=== PATIENT | male | born 1970 | race Caucasian/White ===

== ENCOUNTER 2023-03-05 16:28 | Emergency (ER) | payer OTHER, SELFPAY ==
[2023-03-05] VITALS (39 sets, daily range): BP systolic 127–144; BP diastolic 71–97; PULSE 62–84; RESP 18; TEMP 36.5; O2SAT 94–100; BMI 32.1
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
[2023-03-05 16:58] LABS: Basophils Absolute Auto 0.03 K/uL (0.00-0.30); Basophils Percent Auto 0.4 % (0.0-3.0); Eosinophils Absolute Auto 0.06 K/uL (0.00-0.50); Eosinophils Percent Auto 0.9 % (0.0-7.0); Hematocrit 47.2 % (37.0-53.0); Hemoglobin* 16.3 gm/dL (13.5-17.5); Immature Granulocytes Abs Auto 0.01 K/uL (0.00-0.30); Immature Granulocytes Pct Auto 0.1 %; Lymphocytes Absolute Auto 2.66 K/uL (0.90-2.90); Lymphocytes Percent Auto 38.9 % (20-44); Mean Corpuscular HGB Conc 35 gm/dL (32-36); Mean Corpuscular Hemoglobin 29 pg (26-34); Mean Corpuscular Volume 85 fL (80-100); Monocytes Percent Auto 9.2 % (0.0-11.0); Neutrophils Absolute Auto 3.45 K/uL (1.7-7.0); Neutrophils Percent Auto 50.5 % (42.0-72.0); Platelet Count* 267 K/uL (140-440); RDW Coefficient of Variation % 13.4 % (11.5-15.5); Red Blood Count 5.57 m/uL (4.30-5.90); White Blood Count* 6.84 K/uL (4.50-11.00)
[2023-03-05 17:00] LABS: Slide Review Reflex No
[2023-03-05 17:05] LABS: Appearance Urine Clear (Clear); Bilirubin Urine Negative (Negative); Blood Urine Trace-lysed (Negative); Color Urine Yellow (Yellow); Glucose Urine Negative (Negative); Ketones Urine Negative (Negative); Leukocyte Esterase Urine Negative (Negative); Nitrite Urine Negative (Negative); Protein Urine Trace (Negative); Urobilinogen Urine 0.2 (0.2-1.0); pH Urine 5.5 (5.0-8.5)
[2023-03-05 17:06] LABS: Albumin* 4.9 g/dL (3.3-5.0); Chloride* 107 mmol/L (96-114)
[2023-03-05 17:07] LABS: Potassium* 4.3 mmol/L (3.6-5.1); Sodium* 142 mmol/L (135-149)
[2023-03-05 17:09] LABS: Alanine Aminotransferase* 31 U/L (4-50); Alkaline Phosphatase* 50 U/L (40-150); Aspartate Amino Transferase* 32 U/L (12-35); Bilirubin Direct* 0.2 mg/dL (0.0-0.5); Bilirubin Total* 0.3 mg/dL (0.1-1.5); Blood Urea Nitrogen* 13 mg/dL (7-30); Calcium* 8.7 mg/dL (8.4-10.6); Carbon Dioxide* 23 mmol/L (20-32); Creatinine* 0.8 mg/dL (0.5-1.5); Est. Creatinine Clearance* 115.04; Estimated Glomerular Filt Rate 106 ml/min; Glucose* 104 mg/dL (60-115); Total Protein* 8.4 g/dL (6.0-8.3)
[2023-03-05 17:10] LABS: Ethanol* 0.29 % (0.01-0.03)
[2023-03-05 17:15] LABS: RBC Urine 0-2 (0-2); Squamous Epithelial Cell Urine Few (None-Few); WBC Urine 0-2 (0-5)
[2023-03-05] MEDS: 0.9 % SODIUM CHLORIDE 1000 ml 1,000 ML IV (17:15)
--- NOTE | 2023-03-05 18:00 | ED.NURSE ---
Pt voids ~400mLs into urinal.
--- NOTE | 2023-03-05 19:38 | ED.NURSE ---
Pt's wounds cleansed with wound beer coil cleaner and sterile gauze. Wounds then rinsed using NS. Areas then dried thoroughly with sterile gauze. Dr. Mahan evaluated wounds after cleansing.
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
== END 2023-03-05 19:25 | disposition home or self-care (01) ==
PROVIDERS: Emergency Provider Family Medicine
DX: S50.12XA Contusion of left forearm, initial encounter (principal); F10.229 Alcohol dependence with intoxication, unspecified; S09.90XA Unspecified injury of head, initial encounter; R91.1 Solitary pulmonary nodule; K76.89 Other specified diseases of liver; V86.55XA Driver of 3- or 4- wheeled all-terrain vehicle (ATV) injured in nontraffic accident, initial encounter
CPT/HCPCS: 36415; 70450; 71260; 72125; 73090; 74177; 80048; 80076; 81001; 82077; 85025; 93005; 96360; 99285; 99291; J7030; Q9967

== ENCOUNTER 2023-08-09 15:13 | Outpatient (CLI) | payer OTHER, SELFPAY ==
--- NOTE | 2023-08-09 15:30 | MR_ITS ---
[address] [address] Phone:?[phone] Fax:?[phone] Referring Physician Information: Chavo Marin M.D. [id number] [facility] [address] Phone:?[phone] Fax:?[phone] Patient:?Josue Dai D.O.B:?1970 Sex:?Male Phone:?[phone] [facility] MRN:?[id number] Exam Date:?08/09/2023 EXAM: MRI of the LEFT SHOULDER, without contrast CLINICAL INFORMATION: Male, 52 years old, with left shoulder pain. INDICATION: Evaluate for biceps injury. PRIOR SURGERY: History of shoulder surgery approximately 10 years ago. PLAIN FILMS: Shoulder radiographs dated 08/01/2023 and multiple additional priors are available. COMPARISONS: Left shoulder MRI dated 03/06/2012. TECHNICAL INFORMATION: Using a 1.5T MR scanner and a localizing surface coil: coronal obliques: PD, T2, STIR sagittal obliques: PD, T2 axials: PD, T2 SEDATION: None CONTRAST: None FINDINGS: Bones: Proximal humerus: Surgical anchors in the greater tuberosity reflects rotator cuff repair, described below. No fracture or marrow edema/pathology. No humeral Hill-Sachs or reverse Hill-Sachs lesion/impaction or contusion. Glenoid: No fracture or marrow edema/pathology. No osseous Bankart lesion. Rotator cuff and muscles/tendons: Supraspinatus: Status post repair. Mild supraspinatus tendinopathy and irregularity, without residual or recurrent tendon tear. Infraspinatus: Mild infraspinatus tendinopathy, without tendon tear or muscle atrophy. Teres minor: No tendinopathy, tear or atrophy. Subscapularis: Moderate-marked tendinopathy of the superior distal subscapularis, with partial-thickness interstitial tearing over an area measuring 1.5 x 1.9 cm and involving approximately 50% of the tendon thickness (sagittal T2 series 8 image 13 and axial PD series 3 image 18). Deltoid: No strain or atrophy. Coracoacromial arch: Acromion morphology: Status post anterior acromioplasty for subacromial decompression, good result. No os acromiale. Acromiohumeral space: The acromiohumeral space is decompressed. Coracohumeral space: The coracohumeral space is within normal limits. Acromioclavicular joint: Joint: Status post AC joint resection for subacromial decompression, good result. Ligaments: Coracoclavicular ligaments are intact. Bursae: Subacromial-subdeltoid: No convincing subacromial bursal thickening/bursitis. Subcoracoid: No convincing subcoracoid bursal thickening/bursitis. Biceps tendon: The long head of the biceps tendon is medially displaced at the lesser tuberosity. Moderate tendinopathy and ill-defined low-grade partial tearing of the intra-articular biceps long head tendon (sagittal PD series 7 images 9-16). Glenohumeral joint: Effusion/cyst: Small glenohumeral joint effusion. Articular cartilage: Humeral head: Mild signal heterogeneity, surface irregularity, and thinning of the articular cartilage without full-thickness chondral loss or reactive osseous changes. Glenoid: No osteochondral abnormalities. Loose bodies: No discrete intra-articular body within the joint. Labrum:?Intrasubstance degeneration fraying is present throughout the superior and anterior segments of the labrum, without more well-defined labral tear. No paralabral cyst. Inferior glenohumeral ligament/axillary pouch:?Mild-moderate thickening of inferior capsuloligamentous structures (coronal PD series 5 images 12-18). Additionally, there is soft tissue thickening throughout the rotator interval (sagittal T2 series 8 images 8-14). IMPRESSION: 1. Findings in keeping with a biceps dino injury: -Moderate-marked subtalar tendinopathy with a 1.5 x 1.9 cm area of intermediate grade partial-thickness interstitial tearing at the superior leading edge of the tendon. -Medial displacement of the biceps long head tendon at the lesser tuberosity. -Moderate tendinopathy and ill-defined low-grade partial tearing of the intra- articular biceps long head tendon. -These findings were not present on the prior study dated 03/06/2012. 2. Status post supraspinatus tendon repair. Mild supraspinatus & infraspinatus tendinopathy, without residual or recurrent tendon tear. 3. Status post anterior acromioplasty and AC joint resection for subacromial decompression, good result. No subacromial-subdeltoid bursitis. 4. Intrasubstance degeneration and fraying of the superior and anterior labrum, which is of doubtful clinical significance. 5. Findings in keeping with any clinical symptoms of adhesive capsulitis. 6. No full-thickness chondral defect or evidence of glenohumeral joint osteoarthritis. BC Electronically signed on 08/10/2023 7:11:00 AM by Adolfo Amaro M.D.
== END 2023-08-09 15:14 | disposition home or self-care (01) ==
LOC: MRI 15:13
PROVIDERS: PCP Surgery; Visit Provider Orthopaedic Surgery Sports Medicine
DX: M25.512 Pain in left shoulder (principal); S46.212A Strain of muscle, fascia and tendon of other parts of biceps, left arm, initial encounter; S43.432A Superior glenoid labrum lesion of left shoulder, initial encounter; M75.02 Adhesive capsulitis of left shoulder
CPT/HCPCS: 73221

== ENCOUNTER 2023-08-31 07:54 | Outpatient (CLI) | payer OTHER, SELFPAY ==
--- NOTE | 2023-08-31 08:15 | MR_ITS ---
[facility] [address] [facility] [address] Phone:?[phone] Fax:?[phone] Referring Physician Information: Chavo Marin M.D. [address] [facility] [address] Phone:?[phone] Fax:?[phone] Patient:Scot Dai D.O.B:?1970 Sex:?Male Phone:?[phone] [facility] MRN:?[id number] Exam Date:?08/31/2023 EXAM: MRI of the RIGHT SHOULDER, without contrast CLINICAL HISTORY: Right shoulder pain. Evaluate for rotator cuff tear. COMPARISONS: None available. TECHNICAL: MRI sequences of the right shoulder: Axials: PD, T2 Coronals: PD, STIR, T2 Sagittals: PD, T2 SEDATION: None CONTRAST: None FINDINGS: Bones: No fracture or destructive osseous lesion is seen. Coracoacromial arch: Acromion: No os acromiale. Type I-II acromion. Acromiohumeral space: The bony distance is unremarkable. Acromioclavicular joint: Marked degenerative changes with substantial adjacent distal clavicular and acromial bone marrow edema and inferior osteophytosis effacing the adjacent portion of the supraspinatus muscle. Coracoclavicular ligament: The coracoclavicular ligament is intact. Rotator cuff muscles/tendons: Supraspinatus: 2.0 cm in AP dimension approximately 30% partial-thickness undersurface tear of the supraspinatus tendon insertion with retraction of the torn tendon fibers to the level of the mid humeral head best seen on coronal images 9 through 12 and sagittal series 8 image 9. No muscular atrophy. Infraspinatus: The infraspinatus tendon and muscle are intact. Note is made of an intrasubstance ganglion. Teres minor: The teres minor tendon and muscle are intact. Subscapularis: There is a 2.0 x 2.0 cm split longitudinal intrasubstance/interstitial tear within the superior portion of the subscapularis tendon superimposed upon moderate subscapularis tendinopathy. No muscular atrophy. Labrum and glenohumeral joint: There is type II SLAP tear from the 12 o'clock position through 9 o'clock position posteriorly best seen on sagittal series 7 image 18 and coronal series 4 images 19 through 14. Physiologic amount of joint fluid. No discrete chondral defect or subchondral bone marrow edema/cystic change is seen. No convincing evidence of capsular edema or thickening although evaluation is suboptimal because of lack of joint distention. Proximal biceps tendon, long head and short heads: There is medial subluxation of the proximal long head of the biceps tendon onto the lesser tuberosity and extending into the intrasubstance/interstitial subscapularis tendon tear. The short head is intact. Bursae: Subacromial/subdeltoid: Slight bursitis. Subcoracoid: No convincing subcoracoid bursal thickening/bursitis. IMPRESSION: 1. 2.0 cm in AP dimension approximately 30% partial-thickness undersurface tear of the supraspinatus tendon insertion with retraction of torn undersurface tendon fibers to the level of the mid humeral head. 2. 2.0 x 2.0 cm split longitudinal intrasubstance/interstitial tear within the superior portion of the subscapularis tendon superimposed upon moderate subscapularis tendinopathy. 3. Medial subluxation of the proximal long head of the biceps tendon onto the lesser tuberosity and extending into the intrasubstance/interstitial subscapularis tendon tear. 4. Type II SLAP tear from the 12 o'clock position through 9 o'clock position posteriorly. 5. Marked acromioclavicular joint osteoarthritis with substantial adjacent distal clavicular and acromial bone marrow edema and with inferior osteophytosis effacing the adjacent portion of the supraspinatus muscle. Correlate with any point tenderness and clinical signs and symptoms. 6. Slight subacromial/subdeltoid bursitis. 7. No rotator cuff muscular atrophy. RCB Electronically signed on 08/31/2023 11:52:00 AM by Mendoza Son M.D.
== END 2023-08-31 07:55 | disposition home or self-care (01) ==
PROVIDERS: PCP Surgery; Visit Provider Orthopaedic Surgery Sports Medicine
DX: M25.511 Pain in right shoulder (principal); M75.101 Unspecified rotator cuff tear or rupture of right shoulder, not specified as traumatic; S43.431A Superior glenoid labrum lesion of right shoulder, initial encounter; M19.011 Primary osteoarthritis, right shoulder; M75.51 Bursitis of right shoulder; R29.898 Other symptoms and signs involving the musculoskeletal system
CPT/HCPCS: 73221

== ENCOUNTER 2023-09-04 06:06 | Day surgery (SDC) | payer OTHER, SELFPAY ==
[2023-09-04] VITALS (14 sets, daily range): BP systolic 110–135; BP diastolic 68–100; PULSE 57–72; RESP 14–18; TEMP 36.1–36.6; O2SAT 93–98; BMI 34.4
[2023-09-04] MEDS: fentaNYL 100 MCG/2 ML inj IVP (06:50)
[2023-09-04] MEDS: LACTATED RINGERS 1000 ML 1,000 ML 100 ML IV ×2 (06:50→08:30)
[2023-09-04] MEDS: MIDAZOLAM HCL 1 MG/ML inj IVP (06:50)
--- NOTE | 2023-09-04 07:01 | SUR.PREOP ---
TIME?OUT:?0654 PT/RN/MDA?VERIFICATION?OF?SURGICAL?SITE,?PROCEDURE,?AND?CONSENT OBTAINED?PRIOR?TO?INVASIVE?PROCEDURE.
[2023-09-04] MEDS: CEFAZOLIN 2 GM in 0.9 % SODIUM CHLORIDE Mini-bag 100 ML IVPB (07:45)
--- NOTE | 2023-09-04 07:54 | W.PM.NB ---
Nerve Block Nerve Block Time Seen by Provider: 06:55 Date Seen: 09/04/23 Type of block requested by surgeon for post-operative analgesia: supraclavicular Side: left Time out performed: Yes Verification of patient name: Yes Verification of date of : Yes Site marking: site marked Name of person performing procedure: Clark Continuous monitoring Was continuous monitoring of O2 sat, B/P, monitoring manager, recorded every 15 minutes?: Yes Procedure Checklist: sterile prep, needles and gloves Ultrasound guided. Images saved: Yes Medications given in 5ml increments after negative aspiration: Ropivicaine %: 0.5 mL: 20 Needle gauge: 22 Decadron (mg): 10 Precedex (mcg): 25 Patient tolerated procedure well: Yes Block Charges Block Charge (with Pro Fee): Brachial Plexus Use of Ultrasound Machine for Block: Yes- US Guidance/pain block
--- NOTE | 2023-09-04 07:55 | W.ANESCHARGE ---
Anesthesia Charges Start Date/Time Anesthesia Start Date: 09/04/23 Anesthesia Start Time: 07:34 Stop Date/Time Anesthesia Stop Date: 09/04/23 Anesthesia Stop Time: 09:02
[2023-09-04] MEDS: EPINEPHrine 1 MG in SODIUM CHLORIDE IRRIG SOLUTION 3,000 ML 9003 MG IRRIGATION (08:30)
--- NOTE | 2023-09-04 08:37 | W.PM.H&PU_ITS ---
History & Physical Update History & Physical Update H&P Reviewed and patient assessed: The following changes are noted below H&P Updates: Of note, we did discuss his right shoulder. This is the nonoperative shoulder today. He had an MRI from 08/31/2023 performed at [facility]. I reviewed the MRI and corroborated with radiology report. This shows similar findings the contralateral left shoulder that we are planning for surgery today. The right nonoperative shoulder shows upper border subscapularis longitudinal splitting tear, long head of biceps medial subluxation approaching dislocation along with tendinopathy. There was a 30% low to moderate grade partial-thickness tear of the supraspinatus.
--- NOTE | 2023-09-04 08:39 | P.ORPRC_ITS ---
Procedure Note Date of procedure: 09/04/23 Procedure: PREOPERATIVE DIAGNOSES: 1. Left shoulder rotator cuff tear-upper border subscapularis 2. Left shoulder long head of the biceps tendinopathy, subluxation/dislocation out of the groove, and tenosynovitis POSTOPERATIVE DIAGNOSES: 1. Left shoulder rotator cuff tear-upper border subscapularis 2. Left shoulder long head of the biceps tendinopathy, subluxation/dislocation out of the groove, and tenosynovitis 3. Left shoulder anterior and superior degenerative labral fraying and tearing NAME OF OPERATION: 1. Left shoulder arthroscopic rotator cuff repair - upper border subscapularis 2. Left shoulder arthroscopic biceps tenodesis 3. Left shoulder arthroscopic limited glenohumeral debridement SURGEON: Chavo Marin MD MICROMATIC HONE OPERATOR: Manuel Burdick. Of note, a skilled marketing support assistant was critical for this case to aide in patient positioning, suture manipulation, arm positioning, instrument positioning, and closure. ANESTHESIA: General plus preoperative supraclavicular block. EBL: 25 mL IMPLANTS: Single 4.75 mm BioComposite SwiveLock suture anchor-Arthrex COMPLICATIONS: None evident INDICATIONS: The patient is a pleasant, 52-year-old male who has experienced le ft shoulder pain that has been increasing in recent time. Physical exam and imaging were consistent with a rotator cuff tear. Given their findings, as well as the weakness and pain, and inadequate response to nonoperative management, recommendation was made for surgery. FINDINGS: Exam under anesthesia revealed stable shoulder with excellent range of motion. The diagnostic arthroscopy revealed grade 2-3 chondromalacia humeral head anterior superiorly. Otherwise relatively healthy chondral surfaces. The Subscapularis tendon was torn from its upper border with elevation at the lesser tuberosity and mild retraction. The long head of the biceps tendon was subluxed out of the bicipital groove approaching dislocation. It was significantly flattened and tendinopathic as well. The superior rotator cuff tendon was found to be relatively intact with only minimal low-grade deep surface partial- thickness tearing. An Ethibond suture was visualized consistent with the previous repair from approximately 10-12 years ago. The labrum was degeneratively frayed in the anterior and superior aspects. No loose bodies were identified within the pouch or subscapularis recess. PROCEDURE: Following a thorough discussion of risks, benefits, and alternatives, consent was obtained and the left shoulder was marked. The patient was brought to the operating room and placed supine on the operating table. Induction of anesthesia was completed after preoperative supraclavicular block was administered in preop holding. Appropriate time out was performed identifying proper patient, site, and procedure. 2 g IV Ancef was administered within 1 hour of incision preoperatively. The left upper extremity was prepped and draped in the appropriate sterile fashion using ChloraPrep prep. This was after the patient was positioned in the beach chair with their head in neutral alignment and all bony prominences well padded. The shoulder was insufflated with 20mL of normal saline via an 18g spin al needle from a posterior approach. An 11 blade skin incision allowed a blunt trochar to be inserted and diagnostic arthroscopy to be performed with the findings as noted above. An anterior portal was established with an outside in technique. This allowed the probe to be inserted and confirm the diagnostic arthroscopic findings. The shaver was then inserted and allowed debridement of the anterior and superior labrum as well as the biceps stump. Additionally, the long of the biceps was released from the bicipital tuberosity for arthroscopic tenodesis. Thus, a FiberLink suture was utilized to capture around the biceps, it was then pierced through with further distal for a loop intact technique. Biceps was released from the tuberosity and stump debrided with a shaver. Following this, the upper border subscapularis was repaired after debriding the lesser tuberosity with the shaver and [place] cautery. Subscapularis was captured in horizontal mattress fashion with a fiber tape suture. The tails were brought to a single anchor in the lesser tuberosity with excellent reapproximation of the subscap tendon and good excursion/tension. The biceps tenodesis suture was also placed within the same anchor with excellent security. As the patient had previously undergone extensive subacromial decompression and distal clavicle excision as well as remote mini open rotator cuff repair and MRI confirming that the rotator cuff appeared to be intact, and given the fact that from the deep surface the rotator cuff tendon indeed appeared intact, no further decompression no repair was warranted. Further inspection of the supraspinatus and infraspinatus rotator cuff was performed. This identified no further tearing. Prior to anchor tier truck driver removal, the eyelet sutures were tugged on for each anchor and found that the anchor had excellent stability within the bone. The shoulder was placed through range of motion and found to be stable. The rotator cuff was re-probed and found to be stable. Instruments were removed. Excess fluid was drained, closure performed with 4-0 Monocryl and Steri-Strips. Dressings were applied. Sling was applied. The patient was awoken from anesthe rosina and transferred to the PACU in stable condition. A skilled marketing support assistant was critical for this case to aid in patient positioning, limb positioning, skill to manipulate arthroscopic instruments and camera, suture management, patient safety, and closure. PLAN: 1. Elbow, forearm, wrist and digit range of motion of operative extremity as tolerated. 2. Encouraged ice. 3. Oxycodone for pain as needed. 4. Sling at all times except for ROM and showering. 5. Follow up with PA visit in 1-2 weeks for wound check. Initiate physical therapy following that visit for passive range of motion. Initiate active assisted range of motion at 4-6 weeks. May do pendulums now.
--- NOTE | 2023-09-04 09:09 | W.ANESCHARGE ---
Anesthesia Charges Start Date/Time Anesthesia Start Date: 09/04/23 Anesthesia Start Time: 07:34 Stop Date/Time Anesthesia Stop Date: 09/04/23 Anesthesia Stop Time: 09:02
== END 2023-09-04 11:01 | disposition home or self-care (01) ==
PROVIDERS: PCP Surgery; Visit Provider Orthopaedic Surgery Sports Medicine
PROC: (CPT 29805; principal; 2023-09-04 07:30)
DX: M75.102 Unspecified rotator cuff tear or rupture of left shoulder, not specified as traumatic (principal); M75.22 Bicipital tendinitis, left shoulder; S43.432A Superior glenoid labrum lesion of left shoulder, initial encounter; G89.18 Other acute postprocedural pain
CPT/HCPCS: 29827; 29828; 29822; 01630; 64415; 76942; C1713; J0171; J0330; J0690; J1100; J2250; J2371; J2405; J2704; J2795; J3010; J3490; J7120; L3670

== ENCOUNTER 2023-10-30 07:12 | Day surgery (SDC) | payer OTHER, SELFPAY ==
[2023-10-30] VITALS (13 sets, daily range): BP systolic 114–145; BP diastolic 72–94; PULSE 55–75; RESP 16; TEMP 36.1–36.6; O2SAT 93–97; BMI 343.2
[2023-10-30] MEDS: LACTATED RINGERS 1000 ML 1,000 ML 100 ML IV (07:20)
[2023-10-30] MEDS: SODIUM CHLORIDE 0.9 % (FLUSH) 10 ML SYRINGE IVF (07:33)
[2023-10-30] MEDS: fentaNYL 100 MCG/2 ML inj IVP (09:10)
[2023-10-30] MEDS: MIDAZOLAM HCL 1 MG/ML inj IVP (09:10)
--- NOTE | 2023-10-30 09:18 | SUR.PREOP ---
TIME?OUT:?0909 PT/RN/MDA?VERIFICATION?OF?SURGICAL?SITE,?PROCEDURE,?AND?CONSENT OBTAINED?PRIOR?TO?INVASIVE?PROCEDURE.
[2023-10-30] MEDS: CEFAZOLIN 2 GM in 0.9 % SODIUM CHLORIDE Mini-bag 100 ML IVPB (09:25)
--- NOTE | 2023-10-30 09:25 | W.PM.H&PU ---
History & Physical Update History & Physical Update H&P Reviewed and patient assessed: No changes noted
[2023-10-30] MEDS: EPINEPHrine 1 MG in SODIUM CHLORIDE IRRIG SOLUTION 3,000 ML 3001 MG IRRIGATION ×4 (09:51→10:30)
--- NOTE | 2023-10-30 11:20 | P.ORPRC_ITS ---
Procedure Note Date of procedure: 10/30/23 Procedure: PREOPERATIVE DIAGNOSES: 1. Right shoulder rotator cuff tear. 2. Right shoulder Long of the biceps partial-thickness tearing POSTOPERATIVE DIAGNOSES: 1. Right shoulder rotator cuff tear - upper border subscapularis and anterior portion supraspinatus-both high-grade partial-thickness tears 2. Right shoulder long head biceps moderate to high-grade partial-thickness tearing 3. Right shoulder AC joint arthrosis, symptomatic recently 4. Right shoulder subacromial impingement syndrome. 5. Right shoulder anterior and superior degenerative labral fraying and tearing NAME OF OPERATION: 1. Right shoulder arthroscopic rotator cuff repair. 2. Right shoulder arthroscopic long head of biceps tenodesis 3. Right shoulder arthroscopic distal clavicle excision 4. Right shoulder arthroscopic limited glenohumeral debridement 5. Right shoulder arthroscopic bursectomy, subacromial decompression/partial acromioplasty. SURGEON: Chavo aMrin MD [facility] CODERS: Manuel Davies PA-C. Of note, a skilled safety admin assistant was critical for this case to aide in patient positioning, suture manipulation, arm positioning, instrument positioning, and closure. ANESTHESIA: General plus preoperative supraclavicular block. EBL: 25 mL IMPLANTS: Arthrex 4.75 mm BioComposite SwiveLock suture anchor ( x2); Arthrex 2.6 mm knotless FiberTak RC ( x1) COMPLICATIONS: None evident INDICATIONS: The patient is a pleasant, 53-year-old male who has experienced right shoulder pain that has been increasing in recent time. Physical exam and imaging were consistent with a rotator cuff tear. Upon conversation with the patient this morning and exam here in the clinic, he has been experiencing pain over the anterior shoulder near the AC joint. Exam showed that he had a positive cross-body adduction. In addition, hip positive Neer and Puente impingement signs today. Given their findings, as well as the weakness and pain, and inadequate response to nonoperative management, recommendation was made for surgery. FINDINGS: Exam under anesthesia revealed stable shoulder with excellent range of motion. The diagnostic arthroscopy revealed healthy chondral surfaces of the glenohumeral joint. The Subscapularis tendon was torn from its upper border with moderate retraction. The long head of the biceps tendon was torn in a moderate to high-grade partial-thickness manner. the superior rotator cuff tendon was found to be torn and high-grade partial-thickness manner through the anterior portion from the articular side. The labrum was degeneratively frayed in the anterior and superior aspects. No loose bodies were identified within the pouch or subscapularis recess. PROCEDURE: Following a thorough discussion of risks, benefits, and alternatives, consent was obtained and the right shoulder was marked. The patient was brought to the operating room and placed supine on the operating table. Induction of anesthesia was completed after preoperative supraclavicular block was administered in preop holding. Appropriate time out was performed identifying proper patient, site, and procedure. 2 g IV Ancef was administered within 1 hour of incision preoperatively. The right upper extremity was prepped and draped in the appropriate sterile fashion using ChloraPrep prep. This was after the patient was positioned in the beach chair with their head in neutral alignment and all bony prominences well padded. The shoulder was insufflated with 20mL of normal saline via an 18g spinal needle from a posterior approach. An 11 blade skin incision allowed a blunt trochar to be inserted and diagnostic arthroscopy to be performed with the findings as noted above. An anterior portal was established with an outside in technique. This allowed the probe to be inserted and confirm the diagnostic arthroscopic findings. The shaver was then inserted and allowed debridement of the anterior and superior labrum. additionally, the long of the biceps tendon was captured in a loop and tack technique and then released from the biceps origin. The extra passes were further distal from the original luggage tag capture stitch. This allowed a biceps tenodesis to be performed in the bicipital groove with the anchor for the lesser tuberosity /subscap repair. Following this, the upper border subscapularis was repaired after debriding the lesser tuberosity with the shaver and [place] cautery. Subscapularis was captured in horizontal mattress fashion with a fiber tape suture. The tails were brought to a single anchor in the lesser tuberosity with excellent reapproximation of the subscap tendon and good excursion/tension. Thereafter, the subacromial space was entered. Here, a complete bursectomy and partial acromioplasty/subacromial decompression was performed with a combination of radiofrequency ablator, the shaver, and a 5.5 mm bur. Additionally, distal clavicle excision was performed with the bur. 8 mm of distal clavicle was resected based on the with of our bur. Further inspection of the supraspinatus and infraspinatus rotator cuff was performed. This identified the tear as noted above. The margins of the tear were debrided, and the greater tuberosity was debrided with a combination of the [place] cautery, shaver, and bur on reverse setting. After gentle decortication, A standard 2.6 mm FiberTak RC anchor was placed along the medial row. The 4 tails of suture were passed. 1 of them ended up getting cut from the needle. Thus 3 tails remained with excellent security. They were all passed and brought to a single lateral row anchor. Excellent tissue reapproximation of the greater tuberosity was achieved with good security upon probing. Prior to anchor certified driver examiner removal, the eyelet sutures were tugged on for each anchor and found that the anchor had excellent stability within the bone. The shoulder was placed through range of motion and found to be stable. The rotator cuff was re-probed and found to be stable. Instruments were removed. Excess fluid was drained, closure performed with 4-0 Monocryl and Steri-Strips. Dressings were applied. Sling was applied. The patient was awoken from anesthesia and transferred to the PACU in stable condition. A skilled safety admin assistant was critical for this case to aid in patient positioning, limb positioning, skill to manipulate arthroscopic instruments and camera, suture management, patient safety, and closure. PLAN: 1. Elbow, forearm, wrist and digit range of motion as tolerated. 2. Encouraged ice. 3. Percocet for pain as needed. 4. Sling at all times except for ROM and showering. 5. Follow up with PA visit in 1-2 weeks for wound check. Initiate physical therapy following that visit for passive range of motion. Initiate active assisted range of motion at 4-5 weeks. May do pendulums now.
--- NOTE | 2023-10-30 11:37 | W.ANESCHARGE ---
Anesthesia Charges Start Date/Time Anesthesia Start Date: 10/30/23 Anesthesia Start Time: 09:22 Stop Date/Time Anesthesia Stop Date: 10/30/23 Anesthesia Stop Time: 11:36
--- NOTE | 2023-10-30 11:45 | P.NB_ITS ---
Nerve Block Nerve Block Time Seen by Provider: 09:08 Type of block requested by surgeon for post-operative analgesia: supraclavicular Side: right Time out performed: Yes Verification of patient name: Yes Verification of date of : Yes Site marking: site marked Name of person performing procedure: Clark Carson, if any: Kirk Continuous monitoring Was continuous monitoring of O2 sat, B/P, ekg monitor tech, recorded every 15 minutes?: Yes Procedure Checklist: sterile prep, needles and gloves Ultrasound guided. Images saved: Yes Medications given in 5ml increments after negative aspiration: Ropivicaine %: 0.5 mL: 20 Needle gauge: 22 Decadron (mg): 10 Precedex (mcg): 25 Patient tolerated procedure well: Yes Block Charges Block Charge (with Pro Fee): Brachial Plexus Use of Ultrasound Machine for Block: Yes- US Guidance/pain block
== END 2023-10-30 12:59 | disposition home or self-care (01) ==
PROVIDERS: PCP Surgery; Visit Provider Orthopaedic Surgery Sports Medicine
PROC: (CPT 29805; principal; 2023-10-30 09:30)
DX: M75.101 Unspecified rotator cuff tear or rupture of right shoulder, not specified as traumatic (principal); S46.111A Strain of muscle, fascia and tendon of long head of biceps, right arm, initial encounter; M19.011 Primary osteoarthritis, right shoulder; M75.41 Impingement syndrome of right shoulder; S43.431A Superior glenoid labrum lesion of right shoulder, initial encounter; G89.18 Other acute postprocedural pain
CPT/HCPCS: 29827; 29828; 29826; 29824; 29822; 1630; 64415; 76942; C1713; J0171; J0330; J0690; J1100; J2250; J2405; J2704; J2795; J3010; J7120; L3670

== ENCOUNTER 2024-01-09 09:00 | Outpatient (RCR) | payer OTHER, SELFPAY | END 2024-05-08 23:59 | disposition home or self-care (01) | PROVIDERS: PCP Surgery; Visit Provider Physician Assistant Surgical | DX: Z98.890 Other specified postprocedural states (principal); M25.512 Pain in left shoulder; M62.81 Muscle weakness (generalized); M25.612 Stiffness of left shoulder, not elsewhere classified; Z51.89 Encounter for other specified aftercare | CPT/HCPCS: 97110; 97140; 97161 ==

== ENCOUNTER 2024-04-23 18:28 | Emergency (ER) | payer OTHER, SELFPAY ==
[2024-04-23 18:42] VITALS: BP 154/93; PULSE 69; RESP 18; TEMP 36.4; O2SAT 97; BMI 33.9
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
== END 2024-04-23 22:25 | disposition home or self-care (01) ==
LOC: ED 22:17
PROVIDERS: Emergency Provider Emergency Medicine; PCP Surgery
DX: S61.214A Laceration without foreign body of right ring finger without damage to nail, initial encounter (principal); W27.8XXA Contact with other nonpowered hand tool, initial encounter
CPT/HCPCS: 12001; 99283; 99284

== ENCOUNTER 2024-10-23 15:22 | Outpatient (CLI) | payer OTHER, SELFPAY | END 2024-10-23 15:23 | disposition home or self-care (01) | PROVIDERS: PCP Surgery; Visit Provider Internal Medicine | DX: I10 Essential (primary) hypertension (principal); Z13.6 Encounter for screening for cardiovascular disorders; Z12.5 Encounter for screening for malignant neoplasm of prostate | CPT/HCPCS: 80053; 80061; 84550; G0103 ==

== ENCOUNTER 2025-10-09 08:50 | Outpatient (CLI) | payer OTHER, SELFPAY | END 2025-10-09 08:51 | disposition home or self-care (01) | PROVIDERS: PCP Internal Medicine; Visit Provider Internal Medicine | DX: I10 Essential (primary) hypertension (principal) | CPT/HCPCS: 80053; 80061; G0103 ==